=== PATIENT | female | born 1950 | race African-American/Black ===

== ENCOUNTER 2022-03-08 18:33 | Emergency (ER) | payer MEDICARE ==
[~2022-03-08] VITALS: Ht 157.5 cm; Wt 91.0 kg
[2022-03-08 18:49] VITALS: BP 247/135
[2022-03-08] MEDS ORDERED: ONDANSETRON HCL 4MG/2ML INJ IV STA (22:53)
[2022-03-08] MEDS ORDERED: SODIUM CHLORIDE 0.9% 1,000 ML IV ONE (23:00)
== END 2022-03-09 08:16 | disposition left against medical advice (07) ==
LOC: ER 19:16
DX: Z53.21 Procedure and treatment not carried out due to patient leaving prior to being seen by health care provider (principal)
CPT/HCPCS: 99281; J7030